=== PATIENT | male | born 1980 | race Caucasian/White ===

== ENCOUNTER 2021-08-29 19:37 | Emergency (ER) | payer OTHER ==
[~2021-08-29] VITALS: Ht 175.3 cm; Wt 63.5 kg
--- NOTE | 2021-08-29 21:15 | NUR ---
PT TO ER BED
--- NOTE | 2021-08-29 21:19 | NUR ---
PT ANGÉLICA FROM THE STREETS C/O ETOH PER EMS PATIENT DRANK 750ML OF VODKA. PATIENT ALERT AND ORIENTED X3. AMBULATORY WITH NON LABORED BREAHITNG. PT PLACED IN BED 15 AYLIN MONITOR AND POX.
[2021-08-29] MEDS ORDERED: LORAZEPAM INJ 2 MG/ML VIAL IM ONE (21:30)
[2021-08-29] MEDS ORDERED: LORAZEPAM INJ 2 MG/ML VIAL ONE (21:39)
--- NOTE | 2021-08-30 05:09 | NUR ---
Patient discharged to home in stable condition walking with a steady gait. Written and verbal after care instructions given. Patient verbalizes understanding of instruction.
[2021-08-30 05:10] VITALS: BP 129/98
== END 2021-08-30 05:10 | disposition home or self-care (01) ==
LOC: ER 20:43
DX: F10.129 Alcohol abuse with intoxication, unspecified (principal); F41.9 Anxiety disorder, unspecified; I10 Essential (primary) hypertension; Y90.9 Presence of alcohol in blood, level not specified
CPT/HCPCS: 93005; 96372; 99285; J2060